=== PATIENT | female | born 1960 | race Caucasian/White ===

== ENCOUNTER → 2017-10-11 | Outpatient (CLI) | payer OTHER | LOC: M.ULTRA 10:37 | DX: N64.4 Mastodynia (principal); R92.2 Inconclusive mammogram; R59.9 Enlarged lymph nodes, unspecified ==

== ENCOUNTER → 2017-11-18 | Outpatient (CLI) | payer OTHER ==
[2017-11-18 17:56] LABS: CREATININE 1.1 mg/dL (0.6-1.3)
== END ==
LOC: M.LAB 16:00
PROVIDERS: General Practice
DX: R59.0 Localized enlarged lymph nodes (principal)

== ENCOUNTER → 2017-11-19 | Outpatient (CLI) | payer OTHER | LOC: M.CT 09:00 | DX: N26.1 Atrophy of kidney (terminal) (principal); E04.1 Nontoxic single thyroid nodule; M41.84 Other forms of scoliosis, thoracic region; R59.0 Localized enlarged lymph nodes ==

== ENCOUNTER → 2018-01-06 | Outpatient (CLI) | payer OTHER | LOC: M.ULTRA 07:30 | DX: E04.1 Nontoxic single thyroid nodule (principal); N26.1 Atrophy of kidney (terminal) ==

== ENCOUNTER → 2018-03-25 | Outpatient (CLI) | payer OTHER | LOC: M.RAD 09:46 → M.ULTRA 10:30 | DX: Z12.31 Encounter for screening mammogram for malignant neoplasm of breast (principal); R22.9 Localized swelling, mass and lump, unspecified ==

== ENCOUNTER → 2019-02-10 | Outpatient (CLI) | payer OTHER | LOC: M.ULTRA 10:00 | DX: E04.1 Nontoxic single thyroid nodule (principal) ==

== ENCOUNTER → 2019-08-17 | Outpatient (CLI) | payer OTHER | LOC: M.RAD 09:30 | DX: Z12.31 Encounter for screening mammogram for malignant neoplasm of breast (principal); R59.0 Localized enlarged lymph nodes ==

== ENCOUNTER → 2020-08-21 | Outpatient (CLI) | payer OTHER | LOC: M.RAD 07:34 | PROVIDERS: ATTEND Nurse Practitioner Family | DX: Z12.31 Encounter for screening mammogram for malignant neoplasm of breast (principal) ==

== ENCOUNTER → 2020-10-18 | Outpatient (CLI) | payer OTHER | LOC: M.CT 13:53 | PROVIDERS: ATTEND Nurse Practitioner Family | DX: Z13.6 Encounter for screening for cardiovascular disorders (principal) ==

== ENCOUNTER → 2020-10-18 | Outpatient (CLI) | payer OTHER | LOC: M.ULTRA 09-24 14:04 | PROVIDERS: ATTEND Nurse Practitioner Family | DX: E04.2 Nontoxic multinodular goiter (principal); E07.89 Other specified disorders of thyroid; E04.1 Nontoxic single thyroid nodule; N63.0 Unspecified lump in unspecified breast ==